=== PATIENT | female | born 1975 ===

== ENCOUNTER 2024-09-23 17:09 | Emergency (ER) | payer OTHER ==
[~2024-09-23] VITALS: Ht 170.2 cm; Wt 90.7 kg
== END 2024-09-23 20:25 | disposition left against medical advice (07) ==
LOC: ER 17:09
DX: M25.512 Pain in left shoulder (principal); W01.0XXA Fall on same level from slipping, tripping and stumbling without subsequent striking against object, initial encounter; Z53.21 Procedure and treatment not carried out due to patient leaving prior to being seen by health care provider
CPT/HCPCS: 73030; 99281-25

== ENCOUNTER → 2024-10-19 | Outpatient (CLI) | payer OTHER ==
[2024-10-19 20:17] LABS: Bacterial Vaginosis PCR Negative (NEGATIVE); Candida Group, PCR NOT DETECTED (NOT DETECT); Candida glabrata-krusei, PCR NOT DETECTED (NOT DETECT)
[2024-10-19 20:49] LABS: Chlamydia Trachomatis Vaginal NOT DETECTED (NOT DETECT); Neisseria Gonorrhoea Vaginal NOT DETECTED (NOT DETECT)
[2024-10-28 07:01] LABS: HPV HIGH RISK BY TMA Not Detected; HPV SOURCE Cervical
== END ==
LOC: LAB SHORT 17:26 → LAB 17:26
DX: Z12.4 Encounter for screening for malignant neoplasm of cervix (principal); N89.8 Other specified noninflammatory disorders of vagina
CPT/HCPCS: 87086; 87481; 87491; 87591; 87624; 87661; 87801; G0123